=== PATIENT | female | born 1960 | race Caucasian/White ===

== ENCOUNTER 2023-04-20 12:49 | Emergency (ER) | payer OTHER, SELFPAY ==
[2023-04-20 12:56] VITALS: BP 136/77; PULSE 77; RESP 20; TEMP 36.6; O2SAT 100
--- NOTE | 2023-04-20 13:05 | ED.SKABFB ---
HPI - Skin/Abscess/Foreign Bdy General Chief complaint: Skin/Abscess/Foreign Body Stated complaint: poison elvia or oak History of Present Illness HPI narrative: patient presents with a poison elvia rash to both forearms and face. no Resp problems no drooling and no trouble swallowing. Patient is putting calamine lotion to areas. Related Data Home Medications Medication Instructions Recorded Confirmed baclofen 10 mg tablet 20 mg PO BID 04/20/23 04/20/23 gabapentin 300 mg capsule 300 mg PO TID 04/20/23 04/20/23 Allergies Allergy/AdvReac Type Severity Reaction Status Date / Time albuterol Allergy Mild n/v Verified 04/20/23 13:04 codeine Allergy Mild Unknown Unverified 04/20/23 13:04 propoxyphene Allergy Mild Unknown Unverified 04/20/23 13:04 acetaminophen Allergy Unknown Unknown Verified 04/20/23 13:04 oxycodone Allergy Unknown Unknown Verified 04/20/23 13:04 tramadol Allergy Unknown Unknown Verified 04/20/23 13:04 PROPOXYPHENE HCL Allergy Unknown Unknown Uncoded 04/20/23 13:04 Review of Systems Review of Systems: CONSTITUTIONAL: Denies fever, chills, or sweats. EYES: Denies visual changes, redness, or discharge. ENT: Denies rhinorrhea, congestion, sore throat, or otalgia. CARDIOVASCULAR: Denies chest pain, palpitations, or edema. RESPIRATORY: Denies cough or dyspnea. GASTROINTESTINAL: Denies abdominal pain, nausea, vomiting, or diarrhea. GENITOURINARY: Denies dysuria or hematuria. SKIN: Denies rash or itching. MUSCULOSKELETAL: Denies back pain, joint pain, or myalgia. NEUROLOGIC: Denies headache, numbness, or weakness. PSYCHIATRIC: Denies anxiety or depression. PMFSH Comments At time of signature, agree with nursing past medical, surgical, social and family history. There is no relevant family history pertinent to the presenting complaint Exam Narrative: GENERAL: Well-appearing, well-nourished, and in no acute distress. HEAD: Normocephalic, atraumatic. EYES: PERRLA and EOMI. ENT: Nares clear, no rhinorrhea or epistaxis. Mucous membranes moist. NECK: Supple. CHEST: Clear to auscultation. No respiratory distress. HEART: Regular rate and rhythm. No murmur heard. Normal peripheral pulses. ABDOMEN: Soft, nontender, nondistended, normal active bowel sounds. EXTREMITIES: Normal range of motion. No edema. SKIN: Warm, dry, no rash. RASH CONSISTENT WITH RHUS DERMATITIS. LINEAR HASKINS WITH WET LIKE APPEARS ON NEW AREAS. DIFFERENT STAGES PRESENT. REDNESS TO LESIONS. NO SIGNS OF INFECTION OR CELLULITIS/ABSCESS. NO VESICLES. NO ULCERATIONS. NO RAISED URTICARIAL LESIONS. NO LESIONS ALONG THE WAISTBAND OR IN WEB SPACES. NO BURROWS. NO PETECHIAE. NEURO: No focal deficits. Alert and oriented x3. Ledbetter Coma Scale Eye Opening: Spontaneous 4 Pao Coma Scale Motor: Obeys Commands 6 Ledbetter Coma Scale Verbal: Oriented 5 Pao Coma Scale Total 15 Course Course Level of Care: Express Care Visit Vital Signs Vital signs: Vital Signs Temperature 36.6 C 04/20/23 12:56 Pulse Rate 77 04/20/23 12:56 Respiratory Rate 20 04/20/23 12:56 Blood Pressure 136/77 04/20/23 12:56 Pulse Oximetry 100 04/20/23 12:56 Oxygen Delivery Room Air 04/20/23 12:56 Temperature 36.6 C 04/20/23 12:56 Pulse Rate 77 04/20/23 12:56 Respiratory Rate 20 04/20/23 12:56 Blood Pressure 136/77 04/20/23 12:56 Pulse Oximetry 100 04/20/23 12:56 Oxygen Delivery Room Air 04/20/23 12:56 Transfer Transfer rationale: Please IZAIAH schedule a followup visit with your personal physician for further evaluation and treatment. Including recheck and discussion of your blood pressure. If your symptoms persist, change or worsen significantly before you can contact your personal physician then please, without delay, go to the emergency department for further evaluation MDM - Skin/Abscess/Foreign Bdy Differential Diagnosis Differential diagnosis: Likely abscess of skin or subcutaneous tissue, viral exanthem, dermatophytos
== END 2023-04-20 13:17 | disposition home or self-care (01) ==
PROVIDERS: Emergency Provider Nurse Practitioner Family; PCP Hospitalist
DX: L23.7 Allergic contact dermatitis due to plants, except food (principal)
CPT/HCPCS: 99203; G0463